=== PATIENT | female | born 2000 | race Caucasian/White ===

== ENCOUNTER 2024-12-16 10:55 | Emergency (ER) | payer OTHER, SELFPAY ==
[2024-12-16] MEDS ORDERED: dexAMETHasone 10 MG/ML VIAL ONE (11:25)
[2024-12-16 11:36] LABS: Influenza A Ag Negative; Influenza B Ag Negative; SARS-CoV-2 Antigen Rapid Res Negative (Negative)
--- NOTE | 2024-12-16 11:39 | EDPHYS ---
Physician Documentation [facility] Name: Becky Parkinson Age: 24 yrs Sex: Female : 2000 Arrival Date: 12/16/2024 Time: 10:55 Bed 11 Private MD: ED Physician Thais Tapia HPI: 12/16 11:14 This 24 yrs old Female presents to ER via Ambulatory with complaints of Fever, Sore sp3 Throat. 11:24 24-year-old female with no past medical history presents with sore throat, upper sp3 respiratory symptoms, cough, congestion and frontal sinus type pain. Symptoms been occurring for the last 2 to 3 days. She denies any fever, difficulty swallowing, difficulty breathing, chest pain, shortness of breath, body aches, vomiting, diarrhea, abdominal pain, or any other signs or symptoms on ROS at this time. She denies any travel history but does endorse that several coworkers have "been sick with the bug this been going around".. 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 - Infectious Disease History:: Denies. - Social history:: Smoking status: Reported history of juuling and/or vaping. ROS: 11:24 Constitutional: Negative for fever, chills, and weight loss, Eyes: Negative for injury, sp3 pain, redness, and discharge, Neck: Negative for injury, pain, and swelling, Cardiovascular: Negative for chest pain, palpitations, and edema, Abdomen/GI: Negative for abdominal pain, nausea, vomiting, diarrhea, and constipation, Back: Negative for injury and pain, MS/Extremity: Negative for injury and deformity, Skin: Negative for injury, rash, and discoloration, Neuro: Negative for headache, weakness, numbness, tingling, and seizure, Psych: Negative for depression, anxiety, suicide ideation, homicidal ideation, and hallucinations, Allergy/Immunology: Negative for hives, rash, and allergies, Endocrine: Negative for neck swelling, polydipsia, polyuria, polyphagia, and marked weight changes, Hematologic/Lymphatic: Negative for swollen nodes, abnormal bleeding, and unusual bruising, 11:24 All other systems are negative, Exam: 11:25 Constitutional: This is a well developed, well nourished patient who is awake, alert, sp3 and in no acute distress. Head/Face: Normocephalic, atraumatic. Eyes: Pupils equal round and reactive to light, extra-ocular motions intact. Lids and lashes normal. Conjunctiva and sclera are non-icteric and not injected. Cornea within normal limits. Periorbital areas with no swelling, redness, or edema. Neck: Trachea midline, no thyromegaly or masses palpated, and no cervical lymphadenopathy. Supple, full range of motion without nuchal rigidity, or vertebral point tenderness. No Meningismus. Chest/axilla: Normal chest wall appearance and motion. Nontender with no deformity. No lesions are appreciated. Cardiovascular: Regular rate and rhythm with a normal S1 and S2. No gallops, murmurs, or rubs. Normal PMI, no JVD. No pulse deficits. Abdomen/GI: Soft, non-tender, with normal bowel sounds. No distension or tympany. No guarding or rebound. No evidence of tenderness throughout. Back: No spinal tenderness. No costovertebral tenderness. Full range of motion. Skin: Warm, dry with normal turgor. Normal color with no rashes, no lesions, and no evidence of cellulitis. MS/ Extremity: Pulses equal, no cyanosis. Neurovascular intact. Full, normal range of motion. Neuro: Awake and alert, GCS 15, oriented to person, place, time, and situation. Cranial nerves II-XII grossly intact. Motor strength 5/5 in all extremities. Sensory grossly intact. Cerebellar exam normal. Normal gait. Psych: Awake, alert, with orientation to person, place and time. Behavior, mood, and affect are within normal limits. Vital Signs: 11:04 BP 137 / 87; Pulse 72; Resp 19; Temp 98.6; Pulse Ox 95% on R/A; Weight 81.65 kg; Height iw 4 ft. 11 in. ; 11:04 Body Mass Index 36.36 (81.65 kg, 149.86 cm) iw MDM: 11:08 Medical Screening Exam initiated sp3 11:26 Data reviewed: vital signs, nurses notes, lab test result(s). ED course: 24-year-old sp3 female with general upper respiratory symptoms. Differential diagnosis includes viral illness, upper respiratory infection, COVID-19, influenza, among others. Flu and COVID are pending. Will administer Decadron 10 mg IM. I am not highly suspicious of strep pharyngitis or other pharyngeal illness. Patient has completely normal exam from an ENT standpoint.. 11:38 ED course: Swabs negative and we will discharge patient home at this time.. sp3 12/16 11:09 Order name: COVID-19 Ag + Flu A+B Ag; Complete Time: 11:38 iw Administered Medications: 11:30 Drug: Dexamethasone IM 10 mg IM once Route: IM; Site: right vastus lateralis; ll1 Disposition Summary: 12/16/24 11:38 Discharge Ordered Notes: Location: Home sp3 Condition: Stable sp3 Diagnosis - Upper respiratory infection, viral illness sp3 Followup: sp3 - With: Private Physician - When: Upon discharge from the Emergency Department - Reason: Continuance of care Discharge Instructions: - Discharge Summary Sheet sp3 - Viral Illness, Adult sp3 Forms: - Medication Reconciliation Form sp3 - Antibiotic Education sp3 - Prescription Opioid Use sp3 - Patient Portal Instructions sp3 - Leadership Thank You Letter sp3 Signatures: Dispatcher [employer] Beatrice Hong, JOCELINE CAR iw Harley Leyva RN RN ll1 Thais Tapia MD MD sp3
--- NOTE | 2024-12-16 11:39 | ER ---
Nurse's Notes [facility] Name: Becky Parkinson Age: 24 yrs Sex: Female : 2000 Arrival Date: 12/16/2024 Time: 10:55 Bed 11 Private MD: Diagnosis: Upper respiratory infection, viral illness Presentation: 12/16 11:04 Chief complaint: Patient states: having congestion and runny nose, started yesterday. iw Coronavirus screen: Client presents with at least one sign or symptom that may indicate coronavirus-19. Ebola Screen: No symptoms or risks identified at this time. Initial Sepsis Screen: Does the patient meet any 2 criteria? No. Patient's initial sepsis screen is negative. Does the patient have a suspected source of infection? No. Patient's initial sepsis screen is negative. Risk Assessment: Do you want to hurt yourself or someone else? Patient reports no desire to harm self or others. Onset of symptoms was December 15, 2024. 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 - Infectious Disease History:: Denies. - Social history:: Smoking status: Reported history of juuling and/or vaping. Screenin:07 [facility] ED Fall Risk Assessment (Adult) History of falling in the last 3 months, iw including since admission No falls in past 3 months (0 pts) Confusion or Disorientation No (0 pts) Intoxicated or Sedated No (0 pts) Impaired Gait No (0 pts) Mobility Assist Device Used No (0 pt) Altered Elimination No (0 pt) Score/Fall Risk Level 0 - 2 = Low Risk Oriented to surroundings, Maintained a safe environment. Abuse screen: Denies threats or abuse. Denies injuries from another. Nutritional screening: No deficits noted. Tuberculosis screening: No symptoms or risk factors identified. Assessment: 11:06 General: Appears in no apparent distress. Behavior is calm, cooperative. Pain: iw Complains of pain in head. Neuro: Level of Consciousness is awake, alert, obeys commands, Oriented to person, place, time, situation, Moves all extremities. Full function. Cardiovascular: Patient's skin is warm and dry. Respiratory: Airway is patent Respiratory effort is even, unlabored, GI: Abdomen is flat, non-distended. EENT: Throat is clear. Musculoskeletal: Range of motion: intact in all extremities. 11:30 Reassessment: No changes from previously documented assessment. Patient and/or family ll1 updated on plan of care and expected duration. Pain level reassessed. Patient is alert, oriented x 3, equal unlabored respirations, skin warm/dry/pink. Vital Signs: 11:04 BP 137 / 87; Pulse 72; Resp 19; Temp 98.6; Pulse Ox 95% on R/A; Weight 81.65 kg; Height iw 4 ft. 11 in. ; 11:04 Body Mass Index 36.36 (81.65 kg, 149.86 cm) iw ED Course: 10:57 Patient arrived in ED. gl 11:00 Thais Tapia MD is Attending Physician. sp3 11:05 Triage completed. iw 11:06 Beatrice Tovar, RN is Primary Nurse. iw 11:17 COVID-19 Ag + Flu A+B Ag Sent. iw Administered Medications: 11:30 Drug: Dexamethasone IM 10 mg IM once Route: IM; Site: right vastus lateralis; ll1 Medication: 11:24 VIS not applicable for this client. iw Outcome: 11:38 Discharge ordered by . sp3 11:49 Patient left the ED. iw Signatures: Beatrice Tovar, JOCELINE RN iw Harley Leyva RN RN ll1 Thais Tapia MD MD sp3 Maya Nieto, Reg Reg gl
[2024-12-16 11:55] VITALS: BP 137/87; TEMP 98.6; O2SAT 95
== END 2024-12-16 11:49 | disposition home or self-care (01) ==
LOC: ER 10:55
DX: B34.9 Viral infection, unspecified (principal); J06.9 Acute upper respiratory infection, unspecified; Z11.52 Encounter for screening for COVID-19
CPT/HCPCS: 36415; 87428; 96372; 99284; J1100